=== PATIENT | female | born 1965 | race Hispanic/Latino ===

== ENCOUNTER 2016-10-26 20:31 | Emergency (ER) | payer MEDICARE | END 2016-10-26 21:30 | disposition left against medical advice (07) | LOC: ED 20:31 | DX: R06.00 Dyspnea, unspecified (principal); Z53.21 Procedure and treatment not carried out due to patient leaving prior to being seen by health care provider ==

== ENCOUNTER 2016-10-27 05:37 | Emergency (ER) | payer MEDICARE ==
[2016-10-27 09:49] LABS: Urine Drugs of Abuse Note Disclamer
[2016-10-27 09:59] LABS: Bacteria,Urine 1+ /HPF (Negative); Bilirubin,Urine NEG (Negative); Blood,Urine NEG (Negative); Ketones,Urine TR mg/dL (Negative); Leukocyte Esterase,Urine MOD (Negative); Mucus,Urine 3+ /HPF; Nitrite,Urine NEG (Negative)
[2016-10-27 10:18] LABS: Basophils % (Auto) 1.1 % (0.0-1.8); Eosinophils % (Auto) 0.8 % (0.0-4.3); Hematocrit 45.7 % (30.3-42.9); Hemoglobin 15.3 gm/dl (10.1-14.3); Mean Corpuscular HGB Conc 34 % (30-34); Mean Corpuscular Hemoglobin 32 pg (28-32); Mean Corpuscular Volume 95 fl (79-97); Platelet Count 358 K/mm3 (140-440); Red Blood Count 4.83 M/mm3 (3.65-5.03); Red Cell Distribution Width 13.2 % (13.2-15.2); White Blood Count 12.5 K/mm3 (4.5-11.0)
[2016-10-27] MEDS ORDERED: ATIVAN PO PRN (10:19)
[2016-10-27] MEDS ORDERED: PROAIR IH PRN (10:19)
[2016-10-27] MEDS ORDERED: ATIVAN IV PRN (10:19)
--- NOTE | 2016-10-27 10:25 | Emergency Department Report ---
ED Psych HPI - General Chief Complaint: Psych Stated Complaint: MH EVALUATION Time Seen by Provider: 10/27/16 10:01 Source: patient Mode of arrival: Ambulatory Limitations: No Limitations - History of Present Illness Initial Comments: 51-year-old female presents to the emergency department requesting detox from alcohol. Patient states she has been on a "self-destructive path" for the past several weeks. She states she has been drinking as much vodka and [place] 45 that she can get her hands on. She states for the past 2 days she has not taken any of her regular medications. She states that she has been having suicidal thoughts with a plan to either overdose or cut her wrist. Patient has been no attempt cut herself. At this time, the patient states that she feels like she is beginning to withdraw. She reports mild difficulty breathing and mild, sharp upper abdominal pain. Patient's last drink was approximately 5 hours ago. There are no other complaints. -: Gradual, week(s) Associated Psychiatric Symptoms: depression, suicidal ideation History of same: Yes Quality: constant Improves With: none Worsens With: none Context: recent alcohol abuse, not taking psychiatric Associated Symptoms: shortness of breath, other (abdominal pain) Treatments Prior to Arrival: none If Self Harm: admits thoughts of, has plan - Related Data Home Medications Medication Instructions Recorded Confirmed Last Taken No Known Home Medications [No 07/30/15 07/30/15 Unknown Reported Home Medications] Allergies Allergy/AdvReac Type Severity Reaction Status Date / Time acetaminophen Allergy Hives Verified 07/29/15 22:42 [From Darvocet-N] carbamazepine [From Tegretol] Allergy Rash Verified 10/27/16 09:17 propoxyphene napsylate Allergy Hives Verified 07/29/15 22:42 [From Darvocet-N] tuberculin,PPD,multi-puncture Allergy Hives Verified 07/29/15 22:42 ED Review of Systems ROS: Stated complaint: MH EVALUATION Other details as noted in HPI Comment: All other systems reviewed and negative Respiratory: shortness of breath Gastrointestinal: abdominal pain Psychiatric: depression, suicidal thoughts, other (substance abuse) ED Past Medical Hx - Past Medical History Previous Medical History?: Yes Hx CVA: Yes Hx Arthritis: Yes Hx Psychiatric Treatment: Yes Hx Asthma: Yes Additional medical history: Lumbar disk issues - Surgical History Past Surgical History?: Yes Additional Surgical History: Back, left shoulder, skin cancer right upper arm. - Family History Family history: no significant - Social History Smoking Status: Current Every Day Smoker Substance Use Type: Alcohol, Marijuana - Medications Home Medications: Home Medications Medication Instructions Recorded Confirmed Last Taken Type No Known Home Medications [No 07/30/15 07/30/15 Unknown History Reported Home Medications] ED Physical Exam - General Limitations: No Limitations General appearance: alert, in no apparent distress - Head Head exam: Present: atraumatic, normocephalic - Eye Eye exam: Present: normal appearance, PERRL, EOMI - ENT ENT exam: Present: normal exam, normal orophraynx, mucous membranes moist - Neck Neck exam: Present: normal inspection, full ROM. Absent: tenderness - Respiratory Respiratory exam: Present: wheezes (diffuse bilateral posterior). Absent: respiratory distress - Cardiovascular Cardiovascular Exam: Present: regular rate, normal rhythm, normal heart sounds - GI/Abdominal GI/Abdominal exam: Present: soft, normal bowel sounds. Absent: distended, tenderness - Extremities Exam Extremities exam: Present: normal inspection, full ROM. Absent: tenderness - Back Exam Back exam: Present: normal inspection, full ROM. Absent: tenderness - Neurological Exam Neurological exam: Present: alert, oriented X3. Absent: motor sensory deficit - Psychiatric Psychiatric exam: Present: depressed, flat affect, suicidal ideation - Skin Skin exam: Present: warm, dry, intact ED Course Vital Signs 10/27/16 10/27/16 10/27/16 09:18 10:21 10:54 Temperature 98.2 F 98 F Pulse Rate 101 H 83 Pulse Rate [ 79 Posterior Bilateral Throughout] Respiratory 20 20 Rate Respiratory 20 Rate [Posterior Bilateral Throughout] Blood Pressure 169/99 Blood Pressure 134/67 [Left] O2 Sat by Pulse 94 96 Oximetry 10/27/16 11:10 Temperature Pulse Rate Pulse Rate [ 80 Posterior Bilateral Throughout] Respiratory Rate Respiratory 18 Rate [Posterior Bilateral Throughout] Blood Pressure Blood Pressure [Left] O2 Sat by Pulse Oximetry - Reevaluation(s) Reevaluation #1: 10/27/16 11:32 Patient has been medically cleared. Patient is currently awaiting mental health evaluation. Reevaluation #2: 10/27/16 16:01 Patient has been evaluated vomiting health and is being transferred to [place] for inpatient treatment. Form 1013 has been signed and placed on patient's chart. ED Medical Decision Making - Lab Data Result diagrams: 10/27/16 09:57 10/27/16 09:57 - Differential Diagnosis alcohol abuse, depression, suicidal thoughts, pancreatitis, COPD Critical care attestation.: If time is entered above; I have spent that time in minutes in the direct care of this critically ill patient, excluding procedure time. ED Disposition Clinical Impression: Alcohol abuse, Suicidal ideation Disposition: DC/TX PSY HOSP/PSY UNIT Is pt being admited?: No Condition: Stable Referrals: PRIMARY CARE, [Primary Care Provider] - 3-5 Days Time of Disposition: 16:01
[2016-10-27 10:29] LABS: Anion Gap 16 mmol/L; Blood Urea Nitrogen 9 mg/dL (7-17); Calcium 9.4 mg/dL (8.4-10.2); Carbon Dioxide 26 mmol/L (22-30); Chloride 99.9 mmol/L (98-107); Glucose 104 mg/dL (65-100); Potassium 4.2 mmol/L (3.6-5.0); Sodium 138 mmol/L (137-145)
[2016-10-27] MEDS ORDERED: PROVENTIL IH PRN (10:38)
[2016-10-27] MEDS: ATIVAN PO PRN ×2 (10:44→13:35)
[2016-10-27 10:57] LABS: Alanine Aminotransferase 20 units/L (7-56); Albumin 4.2 g/dL (3.9-5); Albumin/Globulin Ratio 1.4 %; Alkaline Phosphatase 106 units/L (35-129); Bilirubin,Total 0.4 mg/dL (0.1-1.2); Lipase 52 units/L (13-60); Total Protein 7.1 g/dL (6.3-8.2)
[2016-10-27 10:58] LABS: Bilirubin,Direct < 0.2 mg/dL (0-0.2)
[2016-10-27 11:01] VITALS: BP 134/67
--- NOTE | 2016-10-27 14:51 | Consultation ---
History of Present Illness - Reason for Consult Consult date: 10/27/16 Reason for consult: suicidal ideation/alcohol withdrawal - Chief Complaint Chief complaint: Patient presented to the emergency department with suicidal ideation with planned overdose or cut her wrist in addition to alcohol withdrawal. - History of Present Psychiatric Illness Kita Schilling is a 51 year old white female seen for psychiatric consultation while in the emergency department. Attempts to interview the patient were unsuccessful. She received Ativan per the CIWA protocol shortly prior. She was sedated. Information was obtained from the record and the staff. It was reported that she was drinking as much vodka and [place] 45 that she can get her hands on recently. She presented to the hospital stating that she wanted to kill herself by overdose or by cutting her wrists. She was placed on 1013 and started on CIWA protocol for alcohol withdrawal. Medications and Allergies Allergies Allergy/AdvReac Type Severity Reaction Status Date / Time acetaminophen Allergy Hives Verified 07/29/15 22:42 [From Darvocet-N] carbamazepine [From Tegretol] Allergy Rash Verified 10/27/16 09:17 propoxyphene napsylate Allergy Hives Verified 07/29/15 22:42 [From Darvocet-N] tuberculin,PPD,multi-puncture Allergy Hives Verified 07/29/15 22:42 Home Medications Medication Instructions Recorded Confirmed Last Taken Type No Known Home Medications [No 07/30/15 07/30/15 Unknown History Reported Home Medications] Active Meds: Active Medications Albuterol (Proventil) 2.5 mg IH Q4HRT PRN PRN Reason: Shortness Of Breath Last Admin: 10/27/16 10:53 Dose: 2.5 mg Lorazepam (Ativan) 2 mg PO Q1HR PRN PRN Reason: CIWA-Ar 8-15 Last Admin: 10/27/16 13:35 Dose: 2 mg Lorazepam (Ativan) 4 mg PO Q1HR PRN PRN Reason: CIWA-Ar 16-25 Lorazepam (Ativan) 4 mg IV Q15MIN PRN PRN Reason: CIWA-Ar >25 Past psychiatric history - Past Medical History Past Medical History: other (unknown) Past Surgical History: Other (unknown) - past Psychiatric treatment and history psychiatric treatment history: unknown - Social History Social history: other (unknown) Mental Status Exam - Vital signs Last Vital Signs Temp 98 F 10/27/16 10:21 Pulse 80 10/27/16 11:10 Resp 18 10/27/16 11:10 BP 134/67 10/27/16 10:21 Pulse Ox 96 10/27/16 10:21 - Exam Narrative exam: Patient was sedated. Unable to obtain any additional information. 2 attempts to interview the patient were made. Results Result Diagrams: 10/27/16 09:57 10/27/16 09:57 Abnormal lab results 10/27/16 10/27/16 10/27/16 Range/Units 09:42 09:57 09:57 WBC 12.5 H (4.5-11.0) K/mm3 Hgb 15.3 H (10.1-14.3) gm/dl Hct 45.7 H (30.3-42.9) % Seg Neutrophils % 77.9 H (40.0-70.0) % Seg Neutrophils # 9.8 H (1.8-7.7) K/mm3 Creatinine 0.4 L (0.7-1.2) mg/dL Glucose 104 H (65-100) mg/dL Urine WBC (Auto) 8.0 H (0.0-6.0) /HPF U Epithel Cells (Auto) 21.0 H (0-13.0) /HPF All other labs normal. Assessment and Plan Assessment and plan: Will continue to attempt interview with the patient to determine further recommendation Plan: Continue [facility] protocol Transfer to inpatient psychiatric facility once medically cleared
== END 2016-10-27 19:19 ==
LOC: ED 05:37
DX: R45.851 Suicidal ideations (principal); F10.129 Alcohol abuse with intoxication, unspecified; J45.909 Unspecified asthma, uncomplicated; Z86.73 Personal history of transient ischemic attack (TIA), and cerebral infarction without residual deficits; Z87.39 Personal history of other diseases of the musculoskeletal system and connective tissue
CPT/HCPCS: 36415; 80048; 80074; 80307; 81001; 81025; 83690; 85025; 94640; 99285; G0480; 80320

== ENCOUNTER 2016-12-27 01:17 | Emergency (ER) | payer MEDICARE ==
[2016-12-27 02:13] LABS: Basophils % (Auto) 0.9 % (0.0-1.8); Eosinophils % (Auto) 2.4 % (0.0-4.3); Hematocrit 41.4 % (30.3-42.9); Hemoglobin 13.7 gm/dl (10.1-14.3); Mean Corpuscular HGB Conc 33 % (30-34); Mean Corpuscular Hemoglobin 31 pg (28-32); Mean Corpuscular Volume 95 fl (79-97); Platelet Count 328 K/mm3 (140-440); Red Blood Count 4.36 M/mm3 (3.65-5.03); Red Cell Distribution Width 13.7 % (13.2-15.2); White Blood Count 9.3 K/mm3 (4.5-11.0)
[2016-12-27 02:26] LABS: Anion Gap 18 mmol/L; Blood Urea Nitrogen 6 mg/dL (7-17); Carbon Dioxide 28 mmol/L (22-30); Chloride 95.9 mmol/L (98-107); Glucose 95 mg/dL (65-100); Potassium 3.8 mmol/L (3.6-5.0); Sodium 138 mmol/L (137-145)
[2016-12-27 03:58] LABS: Urine Drugs of Abuse Note Disclamer
[2016-12-27 04:44] LABS: Bacteria,Urine 1+ /HPF (Negative); Bilirubin,Urine NEG (Negative); Blood,Urine NEG (Negative); Ketones,Urine NEG (Negative); Leukocyte Esterase,Urine NEG (Negative); Nitrite,Urine NEG (Negative); Protein,Urine <15 mg/dL mg/dL (Negative); RBC,Urine < 1.0 /HPF (0.0-6.0); Urobilinogen,Urine < 2.0 mg/dL (<2.0)
[2016-12-27 06:03] VITALS: BP 121/69
== END 2016-12-27 01:47 | disposition left against medical advice (07) ==
LOC: ED 01:17 → EEVIPCON 01:17 → ED 01:47
DX: Z00.00 Encounter for general adult medical examination without abnormal findings (principal); Z53.21 Procedure and treatment not carried out due to patient leaving prior to being seen by health care provider
CPT/HCPCS: 36415; 80048; 80307; 81001; 81025; 85025; G0480; 80320

== ENCOUNTER 2016-12-29 11:54 | Emergency (ER) | payer MEDICARE | END 2016-12-29 11:57 | disposition left against medical advice (07) | LOC: ED 11:54 | DX: Z53.21 Procedure and treatment not carried out due to patient leaving prior to being seen by health care provider (principal) ==

== ENCOUNTER 2016-12-30 10:36 | Emergency (ER) | payer MEDICARE ==
[2016-12-30 11:11] LABS: Basophils % (Auto) 2.7 % (0.0-1.8); Eosinophils % (Auto) 0.5 % (0.0-4.3); Hemoglobin 14.4 gm/dl (10.1-14.3); Mean Corpuscular HGB Conc 33 % (30-34); Mean Corpuscular Hemoglobin 32 pg (28-32); Mean Corpuscular Volume 95 fl (79-97); Platelet Count 423 K/mm3 (140-440); Red Blood Count 4.55 M/mm3 (3.65-5.03); Red Cell Distribution Width 14.1 % (13.2-15.2); White Blood Count 7.1 K/mm3 (4.5-11.0)
[2016-12-30 11:12] LABS: Blood Urea Nitrogen 8 mg/dL (7-17); Calcium 9.2 mg/dL (8.4-10.2); Carbon Dioxide 25 mmol/L (22-30); Glucose 91 mg/dL (65-100)
[2016-12-30 11:12] LABS: Urine Drugs of Abuse Note Disclamer
[2016-12-30 11:13] LABS: Anion Gap 23 mmol/L; Chloride 96.6 mmol/L (98-107); Potassium 3.9 mmol/L (3.6-5.0); Sodium 141 mmol/L (137-145)
[2016-12-30] MEDS ORDERED: ROBITUSSIN PO ONE (11:34)
[2016-12-30] MEDS ORDERED: TESSALON PERLES PO ONE (11:34)
[2016-12-30] MEDS ORDERED: TORADOL IM ONE (11:35)
[2016-12-30] MEDS ORDERED: NACL 0.9% 1000 ML 1,000 ML IV ONE (11:53)
[2016-12-30] MEDS ORDERED: VALIUM IV ONE (11:53)
[2016-12-30] MEDS ORDERED: DUONEB 0.5 MG-3 MG/3 ML SOLN IH ONE (11:53)
[2016-12-30 12:05] LABS: Bacteria,Urine 1+ /HPF (Negative); Mucus,Urine FEW /HPF
--- NOTE | 2016-12-30 12:07 | XRay Report ---
Single view chest: History: Chest pain. Findings: Normal cardiomediastinal silhouette. Trachea is midline. No consolidation, pneumothorax or pleural effusion. Impression: No acute cardiopulmonary findings.
[2016-12-30 12:15] LABS: Bilirubin,Urine NEG (Negative); Blood,Urine NEG (Negative); Ketones,Urine 20 mg/dL (Negative); Leukocyte Esterase,Urine NEG (Negative); Nitrite,Urine NEG (Negative); Urobilinogen,Urine < 2.0 mg/dL (<2.0)
--- NOTE | 2016-12-30 14:18 | Emergency Department Report ---
HPI - General Chief Complaint: Medical Clearance Time Seen by Provider: 12/30/16 11:30 - HPI HPI: The patient is a 51-year-old female presents for evaluation of dyspnea. The patient reports constant severe dyspnea for the past one day, exacerbated with exertion, improved with rest. She also reports associated no productive cough for the past 2 weeks, worsening for the past one day. The patient has fever, chest pain, syncope, hemoptysis, unilateral leg swelling, oral contraceptive use , recent immobilization, history of DVT or PE, recent cancer. ED Past Medical Hx - Past Medical History Previous Medical History?: Yes Hx CVA: Yes Hx Arthritis: Yes Hx Psychiatric Treatment: Yes (ETOH abuse, Drug abuse, Cocaine and crack) Hx Asthma: Yes Additional medical history: Lumbar disk issues - Surgical History Past Surgical History?: Yes Additional Surgical History: Back, left shoulder, skin cancer right upper arm. - Social History Smoking Status: Current Every Day Smoker Substance Use Type: Alcohol, Cocaine, Marijuana, Prescribed, Other - Medications Home Medications: Home Medications Medication Instructions Recorded Confirmed Last Taken Type ALBUTEROL Inhaler [ProAir HFA 2 puff IH QID PRN #1 inhalation 12/30/16 Unknown Rx Inhaler] Benzonatate [Tessalon Perles] 100 mg PO Q8HR #14 capsule 12/30/16 Unknown Rx Buprenorphine HCl/Naloxone HCl 1 each SL TID 12/30/16 12/30/16 Unknown History [Suboxone 4 mg-1 mg Sl Film] Duloxetine HCl [Cymbalta] 60 mg PO DAILY 12/30/16 12/30/16 Unknown History Gabapentin [Neurontin] 800 mg PO QID 12/30/16 12/30/16 Unknown History Lisinopril 40 mg PO DAILY 12/30/16 12/30/16 Unknown History Oxycodone HCl/Acetaminophen 1 each PO TID 12/30/16 12/30/16 Unknown History [Percocet 10/325 mg] Prazosin [Minipress] 1 mg PO DAILY 12/30/16 12/30/16 Unknown History lamoTRIgine [LaMICtal] 100 mg PO QDAY 12/30/16 12/30/16 Unknown History predniSONE [Deltasone] 20 mg PO QDAY #5 tab 12/30/16 Unknown Rx traZODone [Desyrel] 200 mg PO QHS 12/30/16 12/30/16 Unknown History ED Review of Systems ROS: Stated complaint: COUGH,CONGESTION/FEVER/BACK PAIN Other details as noted in HPI Constitutional: denies: fever ENT: denies: throat or neck pain Respiratory: reports cough, shortness of breath Cardiovascular: denies: chest pain Endocrine: denies unexplained weight loss or gain Gastrointestinal: denies: abdominal pain, nausea Genitourinary: denies: dysuria Musculoskeletal: denies: leg swelling Skin: denies: rash Neurological: denies: headache Hematological/Lymphatic: denies: easy bleeding or easy bruising Psych: denies sadness or hopelessness Physical Exam - Physical Exam Vital Signs: Vital Signs 12/30/16 12/30/16 12/30/16 10:40 11:14 11:20 Temperature 98.1 F Pulse Rate 86 Pulse Rate [ Posterior Throughout] Respiratory 22 Rate Respiratory Rate [Posterior Throughout] Blood Pressure 159/105 163/81 Blood Pressure [Right] O2 Sat by Pulse 97 98 97 Oximetry 12/30/16 12/30/16 12/30/16 11:30 11:33 11:34 Temperature Pulse Rate 76 Pulse Rate [ Posterior Throughout] Respiratory 18 18 Rate Respiratory Rate [Posterior Throughout] Blood Pressure 158/76 Blood Pressure 163/81 [Right] O2 Sat by Pulse 92 96 96 Oximetry 12/30/16 12/30/16 12/30/16 11:40 12:27 12:38 Temperature Pulse Rate Pulse Rate [ 80 84 Posterior Throughout] Respiratory Rate Respiratory 18 18 Rate [Posterior Throughout] Blood Pressure 158/76 Blood Pressure [Right] O2 Sat by Pulse 98 Oximetry 12/30/16 12/30/16 12/30/16 12:40 12:50 13:00 Temperature Pulse Rate Pulse Rate [ Posterior Throughout] Respiratory Rate Respiratory Rate [Posterior Throughout] Blood Pressure 158/76 158/76 Blood Pressure [Right] O2 Sat by Pulse 93 94 93 Oximetry Physical Exam: General: well-nourished, well-developed, no acute distress Head: Normocephalic, atraumatic Eyes: normal sclera ENT: Mucous membranes are pink and moist Neck: trachea midline, neck supple, No neck stiffness, no cervical adenopathy Respiratory: Diminished breath sounds and wheezing present to mid apical lung zepeda bilaterally, no costal retractions, no rales or distress, no rales or rhonchi Cardio: S1 and S2 present, no murmurs, rubs, gallops, capillary refill is brisk Abdomen: Normoactive bowel sounds, soft abdomen, no rigidity, no guarding or rebound tenderness Musc: No pitting edema Skin: No rash Neuro: no facial drooping, normal speech Psych: Normal affect ED Course Vital Signs 12/30/16 12/30/16 12/30/16 10:40 11:14 11:20 Temperature 98.1 F Pulse Rate 86 Pulse Rate [ Posterior Throughout] Respiratory 22 Rate Respiratory Rate [Posterior Throughout] Blood Pressure 159/105 163/81 Blood Pressure [Right] O2 Sat by Pulse 97 98 97 Oximetry 12/30/16 12/30/16 12/30/16 11:30 11:33 11:34 Temperature Pulse Rate 76 Pulse Rate [ Posterior Throughout] Respiratory 18 18 Rate Respiratory Rate [Posterior Throughout] Blood Pressure 158/76 Blood Pressure 163/81 [Right] O2 Sat by Pulse 92 96 96 Oximetry 12/30/16 12/30/16 12/30/16 11:40 12:27 12:38 Temperature Pulse Rate Pulse Rate [ 80 84 Posterior Throughout] Respiratory Rate Respiratory 18 18 Rate [Posterior Throughout] Blood Pressure 158/76 Blood Pressure [Right] O2 Sat by Pulse 98 Oximetry 12/30/16 12/30/16 12/30/16 12:40 12:50 13:00 Temperature Pulse Rate Pulse Rate [ Posterior Throughout] Respiratory Rate Respiratory Rate [Posterior Throughout] Blood Pressure 158/76 158/76 Blood Pressure [Right] O2 Sat by Pulse 93 94 93 Oximetry ED Medical Decision Making - Lab Data Result diagrams: 12/30/16 10:47 12/30/16 10:47 - Medical Decision Making The patient was seen and examined by myself. The patient is placed on a equipment monitor phototypesetting and continuous pulse ox. On initial evaluation, the patient was found to be in no distress. Evaluation orders were placed. The patient is given Tessalon Perles for cough, a duoneb breathing treatment and IV Solu- Medrol for txt of COPD. the patient is given 1 L normal saline fluid bolus for treatment of dehydration. Chest x-ray negative for focal consolidation, pleural effusions, pulmonary congestion, pneumothorax, or other acute cardio pulmonary disease process. Lab results revealed elevated hemoglobin and hematocrit, consistent with exam findings of dehydration, and otherwise labs are grossly not concerning. The patient was reevaluated and reported that their symptoms were improved. The patient is stable for discharge with outpatient follow-up. The patient is given follow-up and return instructions. The patient expressed understanding and agreed with the plan. The patient is given a prescription for prednisone. The patient is discharged in stable condition. Critical care attestation.: If time is entered above; I have spent that time in minutes in the direct care of this critically ill patient, excluding procedure time. ED Disposition Clinical Impression: COPD with acute exacerbation, Dehydration, Upper respiratory infection, acute Alcohol intoxication Qualifiers: Complication of substance-induced condition: uncomplicated Qualified Code(s): F10.920 - Alcohol use, unspecified with intoxication, uncomplicated Disposition: DISCHARGED TO HOME OR SELFCARE Is pt being admited?: No Does the pt Need Aspirin: No Condition: Stable Instructions: Chronic Obstructive Pulmonary Disease (ED), Alcohol Intoxication (ED), Medical Clearance for Substance Abuse Treatment (ED) Prescriptions: ALBUTEROL Inhaler [ProAir HFA Inhaler] 2 puff IH QID PRN #1 inhalation PRN Reason: Shortness Of Breath Benzonatate [Tessalon Perles] 100 mg PO Q8HR #14 capsule predniSONE [Deltasone] 20 mg PO QDAY #5 tab Referrals: PRIMARY CARE, [Primary Care Provider] - 3-5 Days Time of Disposition: 14:16
[2016-12-30 16:19] VITALS: BP 145/78
== END 2016-12-30 16:17 | disposition home or self-care (01) ==
LOC: ED 10:36
DX: J44.1 Chronic obstructive pulmonary disease with (acute) exacerbation (principal); E86.0 Dehydration; J06.9 Acute upper respiratory infection, unspecified; F10.920 Alcohol use, unspecified with intoxication, uncomplicated; M19.90 Unspecified osteoarthritis, unspecified site; F17.200 Nicotine dependence, unspecified, uncomplicated; F12.10 Cannabis abuse, uncomplicated; F14.10 Cocaine abuse, uncomplicated; Z86.73 Personal history of transient ischemic attack (TIA), and cerebral infarction without residual deficits
CPT/HCPCS: 36415; 71010; 80048; 80307; 81001; 83880; 85025; 93005; 93010; 94640; 96361; 96372; 96374; 96375; 99285; G0480; J1885; J2930; J3360; J7030; 80320

== ENCOUNTER 2017-10-09 11:07 | Outpatient (CLI) | payer MEDICARE ==
--- NOTE | 2017-10-09 11:34 | XRay Report ---
X-RAY RIGHT WRIST THREE VIEWS: 10/09/17 CLINICAL: Right wrist pain. No comparison. FINDINGS: The examination is taken through a fiberglass cast. Comminuted mildly displaced fracture of the distal radius with no distinct callus identified. The predominant fracture line is horizontal with some impaction but there is a longitudinal fracture line which extends into the radiocarpal joint. The medial corner fragment of the distal radius is slightly displaced medially. The distal ulna is normal. Carpal bones are intact. IMPRESSION: Traumatic subacute fracture of the distal radius with mild displacement of fragments. Bony detail is obscured by the overlying cast.
== END 2017-10-09 11:08 | disposition home or self-care (01) ==
LOC: SPVIMAG 11:07
PROVIDERS: ATTEND Orthopaedic Surgery
DX: S52.501A Unspecified fracture of the lower end of right radius, initial encounter for closed fracture (principal); X58.XXXA Exposure to other specified factors, initial encounter; Y93.89 Activity, other specified; Y92.89 Other specified places as the place of occurrence of the external cause; Y99.8 Other external cause status

== ENCOUNTER 2017-10-30 00:39 | Emergency (ER) | payer MEDICARE ==
[2017-10-30 01:48] LABS: Alanine Aminotransferase 10 units/L (7-56); Albumin 4.7 g/dL (3.9-5); BUN/Creatinine Ratio 30; Blood Urea Nitrogen 12 mg/dL (7-17); Calcium 8.9 mg/dL (8.4-10.2); Hemolysis Index 53
[2017-10-30 01:56] LABS: Hematocrit TNR % (30.3-42.9); Hemoglobin TNR gm/dl (10.1-14.3); Mean Corpuscular Volume TNR fl (79-97); Red Blood Count TNR M/mm3 (3.65-5.03)
[2017-10-30 01:57] LABS: Lymphocytes % (Auto) TNR % (13.4-35.0); Mean Corpuscular HGB Conc TNR % (30-34); Mean Corpuscular Hemoglobin TNR pg (28-32); Mean Platelet Volume TNR fl (6-12); Monocytes % (Auto) TNR % (0.0-7.3); Platelet Count TNR K/mm3 (140-440); Red Cell Distribution Width TNR % (13.2-15.2)
[2017-10-30 01:58] LABS: Basophils # (Auto) TNR K/mm3 (0.0-0.1); Basophils % (Auto) TNR % (0.0-1.8); Eosinophils # (Auto) TNR K/mm3 (0.0-0.4); Eosinophils % (Auto) TNR % (0.0-4.3); Lymphocytes # (Auto) TNR K/mm3 (1.2-5.4); Monocytes # (Auto) TNR K/mm3 (0.0-0.8)
[2017-10-30 03:02] LABS: Basophils # (Auto) 0.1 K/mm3 (0.0-0.1); Basophils % (Auto) 1.3 % (0.0-1.8); Eosinophils # (Auto) 0.1 K/mm3 (0.0-0.4); Eosinophils % (Auto) 0.9 % (0.0-4.3); Hematocrit 45.6 % (30.3-42.9); Hemoglobin 15.6 gm/dl (10.1-14.3); Lymphocytes # (Auto) 1.8 K/mm3 (1.2-5.4); Lymphocytes % (Auto) 25.5 % (13.4-35.0); Mean Corpuscular HGB Conc 34 % (30-34); Mean Corpuscular Hemoglobin 32 pg (28-32); Mean Corpuscular Volume 94 fl (79-97); Monocytes # (Auto) 0.3 K/mm3 (0.0-0.8); Monocytes % (Auto) 3.8 % (0.0-7.3); Platelet Count 215 K/mm3 (140-440); Red Blood Count 4.85 M/mm3 (3.65-5.03); Red Cell Distribution Width 14.7 % (13.2-15.2)
[2017-10-30 03:07] LABS: Bilirubin,Urine NEG (Negative); Blood,Urine NEG (Negative); Color,Urine Yellow (Yellow); Hyaline Casts,Urine 1 /LPF; Mucus,Urine FEW /HPF; Protein,Urine <15 mg/dL mg/dL (Negative); Urobilinogen,Urine < 2.0 mg/dL (<2.0); WBC,Urine < 1.0 /HPF (0.0-6.0)
[2017-10-30 03:15] LABS: Amphetamine Screen,Urine PRESUMPTIVE NEGATIVE; Benzodiazepines Screen,Urine PRESUMPTIVE NEGATIVE; Cocaine Screen,Urine PRESUMPTIVE NEGATIVE; Methadone Screen,Urine PRESUMPTIVE NEGATIVE; Opiate Screen,Urine PRESUMPTIVE NEGATIVE
[2017-10-30 03:27] LABS: Cannabinoid Screen,Urine PRESUMPTIVE POSITIVE
--- NOTE | 2017-10-30 04:38 | Cat Scan Report ---
FINAL REPORT EXAM: CT HEAD/BRAIN WO CON HISTORY: AMS TECHNIQUE: Routine axial imaging was obtained of the brain without IV contrast. FINDINGS: There is no evidence of acute stroke or hemorrhage. The ventricular system is appropriate in size and is symmetric. The basal cisterns appear normal. The visualized sinuses are clear. The mastoid air cells are well pneumatized. The calvarium appears intact IMPRESSION: No acute intracranial process.
[2017-10-30] MEDS: VITAMIN B-1 100 MG, FOLVITE 1 MG, INFUVITE 10 ML in NACL 0.9% 1000 ML 1,000 ML IV ONE (05:18)
--- NOTE | 2017-10-30 06:26 | Emergency Department Report ---
ED General Adult HPI - General Chief complaint: Alcohol Stated complaint: POSS ETOH,BACK/ABD PAIN Time Seen by Provider: 10/30/17 06:24 Source: patient, EMS Mode of arrival: Wheelchair Limitations: No Limitations - History of Present Illness Initial comments: This is a 52-year-old female that arrived here last night essentially intoxicated with alcohol. She has chronic back pain which she is not complaining. On my encounter at [facility] resting comfortably. She did note that she has COPD and when I asked requested a neb treatment. Aside from that she had no acute complaint. -: Gradual Location: back (chronic back pain) Radiation: non-radiation Quality: aching Consistency: intermittent Improves with: none Worsens with: none Associated Symptoms: denies other symptoms - Related Data Home Medications Medication Instructions Recorded Confirmed Last Taken Buprenorphine HCl/Naloxone HCl 1 each SL TID 12/30/16 12/30/16 Unknown [Suboxone 4 mg-1 mg Sl Film] Duloxetine HCl [Cymbalta] 60 mg PO DAILY 12/30/16 12/30/16 Unknown Gabapentin [Neurontin] 800 mg PO QID 12/30/16 12/30/16 Unknown Lisinopril 40 mg PO DAILY 12/30/16 12/30/16 Unknown Oxycodone HCl/Acetaminophen 1 each PO TID 12/30/16 12/30/16 Unknown [Percocet 10/325 mg] Prazosin [Minipress] 1 mg PO DAILY 12/30/16 12/30/16 Unknown lamoTRIgine [LaMICtal] 100 mg PO QDAY 12/30/16 12/30/16 Unknown traZODone [Desyrel] 200 mg PO QHS 12/30/16 12/30/16 Unknown Previous Rx's Medication Instructions Recorded Last Taken Type ALBUTEROL Inhaler [ProAir HFA 2 puff IH QID PRN #1 inhalation 12/30/16 Unknown Rx Inhaler] Benzonatate [Tessalon Perles] 100 mg PO Q8HR #14 capsule 12/30/16 Unknown Rx predniSONE [Deltasone] 20 mg PO QDAY #5 tab 12/30/16 Unknown Rx Allergies Allergy/AdvReac Type Severity Reaction Status Date / Time acetaminophen Allergy Hives Verified 07/29/15 22:42 [From Darvocet-N] carbamazepine [From Tegretol] Allergy Rash Verified 10/27/16 09:17 propoxyphene napsylate Allergy Hives Verified 07/29/15 22:42 [From Makayla-N] tuberculin,PPD,multi-puncture Allergy Hives Verified 07/29/15 22:42 ED Review of Systems ROS: Stated complaint: POSS ETOH,BACK/ABD PAIN Other details as noted in HPI Constitutional: denies: chills, fever Eyes: denies: eye pain, eye discharge, vision change ENT: denies: ear pain, throat pain Respiratory: denies: cough, shortness of breath, wheezing Cardiovascular: denies: chest pain, palpitations Endocrine: no symptoms reported Gastrointestinal: denies: abdominal pain, nausea, diarrhea Genitourinary: denies: urgency, dysuria, discharge Musculoskeletal: as per HPI, back pain. denies: joint swelling, arthralgia Skin: denies: rash, lesions Neurological: denies: headache, weakness, paresthesias Psychiatric: denies: anxiety, depression Hematological/Lymphatic: denies: easy bleeding, easy bruising ED Past Medical Hx - Past Medical History Previous Medical History?: Yes Hx CVA: Yes Hx Arthritis: Yes Hx Psychiatric Treatment: Yes (ETOH abuse, Drug abuse, Cocaine and crack) Hx Asthma: Yes Additional medical history: Lumbar disk issues - Surgical History Past Surgical History?: Yes Additional Surgical History: Back, left shoulder, skin cancer right upper arm. - Social History Smoking Status: Current Every Day Smoker Substance Use Type: Alcohol - Medications Home Medications: Home Medications Medication Instructions Recorded Confirmed Last Taken Type ALBUTEROL Inhaler [ProAir HFA 2 puff IH QID PRN #1 inhalation 12/30/16 Unknown Rx Inhaler] Benzonatate [Tessalon Perles] 100 mg PO Q8HR #14 capsule 12/30/16 Unknown Rx Buprenorphine HCl/Naloxone HCl 1 each SL TID 12/30/16 12/30/16 Unknown History [Suboxone 4 mg-1 mg Sl Film] Duloxetine HCl [Cymbalta] 60 mg PO DAILY 12/30/16 12/30/16 Unknown History Gabapentin [Neurontin] 800 mg PO QID 12/30/16 12/30/16 Unknown History Lisinopril 40 mg PO DAILY 12/30/16 12/30/16 Unknown History Oxycodone HCl/Acetaminophen 1 each PO TID 12/30/16 12/30/16 Unknown History [Percocet 10/325 mg] Prazosin [Minipress] 1 mg PO DAILY 12/30/16 12/30/16 Unknown History lamoTRIgine [LaMICtal] 100 mg PO QDAY 12/30/16 12/30/16 Unknown History predniSONE [Deltasone] 20 mg PO QDAY #5 tab 12/30/16 Unknown Rx traZODone [Desyrel] 200 mg PO QHS 12/30/16 12/30/16 Unknown History ED Physical Exam - General Limitations: No Limitations General appearance: alert, in no apparent distress - Head Head exam: Present: atraumatic, normocephalic - Eye Eye exam: Present: normal appearance. Absent: scleral icterus - ENT ENT exam: Present: mucous membranes moist - Neck Neck exam: Present: normal inspection. Absent: tenderness, meningismus - Respiratory Respiratory exam: Present: normal lung sounds bilaterally. Absent: respiratory distress - Cardiovascular Cardiovascular Exam: Present: regular rate, normal rhythm. Absent: systolic murmur, diastolic murmur, rubs, gallop - GI/Abdominal GI/Abdominal exam: Present: soft, normal bowel sounds. Absent: distended, tenderness, guarding, rebound, rigid - Extremities Exam Extremities exam: Present: normal inspection, full ROM, normal capillary refill. Absent: tenderness, pedal edema, joint swelling, calf tenderness - Back Exam Back exam: Present: normal inspection. Absent: CVA tenderness (R), CVA tenderness (L), muscle spasm, paraspinal tenderness, vertebral tenderness - Neurological Exam Neurological exam: Present: alert, oriented X3, CN II-XII intact. Absent: motor sensory deficit - Psychiatric Psychiatric exam: Present: normal affect, normal mood - Skin Skin exam: Present: warm, dry, intact, normal color. Absent: rash ED Course Vital Signs 10/30/17 10/30/17 10/30/17 00:55 01:00 01:01 Temperature 97.7 F Pulse Rate 77 Pulse Rate [ Anterior] Respiratory 22 Rate Respiratory Rate [Anterior] Blood Pressure 160/72 161/83 Blood Pressure 161/83 [Left] O2 Sat by Pulse 96 92 98 Oximetry 10/30/17 10/30/17 10/30/17 03:00 04:00 05:03 Temperature Pulse Rate Pulse Rate [ Anterior] Respiratory Rate Respiratory Rate [Anterior] Blood Pressure 125/61 140/77 140/77 Blood Pressure [Left] O2 Sat by Pulse 91 92 93 Oximetry 10/30/17 10/30/17 10/30/17 06:00 07:45 08:14 Temperature Pulse Rate 95 H Pulse Rate [ 88 Anterior] Respiratory 20 Rate Respiratory 22 Rate [Anterior] Blood Pressure 124/70 Blood Pressure 135/72 [Left] O2 Sat by Pulse 94 100 Oximetry - Reevaluation(s) Reevaluation #1: Patient was fully ambulatory about the emergency department. I found no criteria for admission. She'll be released and encouraged to to follow up with primary care provider. She is now awake alert and oriented 3. 10/30/17 09:22 10/30/17 09:23 ED Medical Decision Making - Lab Data Result diagrams: 10/30/17 02:25 10/30/17 01:12 Laboratory Results - last 24 hr 10/30/17 10/30/17 10/30/17 01:12 01:12 01:12 WBC TNR RBC TNR Hgb TNR Hct TNR MCV TNR MCH TNR MCHC TNR RDW TNR Plt Count TNR Lymph % (Auto) TNR Berks % (Auto) TNR Eos % (Auto) TNR Baso % (Auto) TNR Lymph # TNR [place] # TNR Eos # TNR Baso # TNR Add Manual Diff TNR Seg Neutrophils % TNR Seg Neutrophils # TNR Sodium 138 Potassium 4.4 Chloride 96.5 L Carbon Dioxide 21 L Anion Gap 25 BUN 12 Creatinine 0.4 L Estimated GFR > 60 BUN/Creatinine Ratio 30 Glucose 85 Calcium 8.9 Magnesium 1.90 Total Bilirubin 0.20 AST 22 ALT 10 Alkaline Phosphatase 103 Total Creatine Kinase Total Protein 7.5 Albumin 4.7 Albumin/Globulin Ratio 1.7 Urine Color Urine Turbidity Urine pH Ur Specific Anthony Urine Protein Urine Glucose (UA) Urine Ketones Urine Blood Urine Nitrite Urine Bilirubin Urine Urobilinogen Ur Leukocyte Esterase Urine WBC (Auto) Urine RBC (Auto) Hyaline Casts Urine Mucus Urine Opiates Screen Urine Methadone Screen Ur Barbiturates Screen Ur Phencyclidine Scrn Ur Amphetamines Screen U Benzodiazepines Scrn Urine Cocaine Screen U Marijuana (THC) Screen Drugs of Abuse Note Plasma/Serum Alcohol 0.25 H 03/28/18 03/28/18 03/28/18 01:12 02:11 02:11 WBC RBC Hgb Hct MCV MCH MCHC RDW Plt Count Lymph % (Auto) Berks % (Auto) Eos % (Auto) Baso % (Auto) Lymph # [place] # Eos # Baso # Add Manual Diff Seg Neutrophils % Seg Neutrophils # Sodium Potassium Chloride Carbon Dioxide Anion Gap BUN Creatinine Estimated GFR BUN/Creatinine Ratio Glucose Calcium Magnesium Total Bilirubin AST ALT Alkaline Phosphatase Total Creatine Kinase 56 Total Protein Albumin Albumin/Globulin Ratio Urine Color Yellow Urine Turbidity Clear Urine pH 5.0 Ur Specific Anthony 1.013 Urine Protein <15 mg/dl Urine Glucose (UA) Neg Urine Ketones Neg Urine Blood Neg Urine Nitrite Neg Urine Bilirubin Neg Urine Urobilinogen < 2.0 Ur Leukocyte Esterase Neg Urine WBC (Auto) < 1.0 Urine RBC (Auto) 1.0 Hyaline Casts 1 Urine Mucus Few Urine Opiates Screen Presumptive negative Urine Methadone Screen Presumptive negative Ur Barbiturates Screen Presumptive negative Ur Phencyclidine Scrn Presumptive negative Ur Amphetamines Screen Presumptive negative U Benzodiazepines Scrn Presumptive negative Urine Cocaine Screen Presumptive negative U Marijuana (THC) Screen Presumptive positive Drugs of Abuse Note Disclamer Plasma/Serum Alcohol 10/30/17 02:25 WBC 6.9 RBC 4.85 Hgb 15.6 H Hct 45.6 H MCV 94 MCH 32 MCHC 34 RDW 14.7 Plt Count 215 Lymph % (Auto) 25.5 Berks % (Auto) 3.8 Eos % (Auto) 0.9 Baso % (Auto) 1.3 Lymph # 1.8 Berks # 0.3 Eos # 0.1 Baso # 0.1 Add Manual Diff Seg Neutrophils % 68.5 Seg Neutrophils # 4.7 Sodium Potassium Chloride Carbon Dioxide Anion Gap BUN Creatinine Estimated GFR BUN/Creatinine Ratio Glucose Calcium Magnesium Total Bilirubin AST ALT Alkaline Phosphatase Total Creatine Kinase Total Protein Albumin Albumin/Globulin Ratio Urine Color Urine Turbidity Urine pH Ur Specific Anthony Urine Protein Urine Glucose (UA) Urine Ketones Urine Blood Urine Nitrite Urine Bilirubin Urine Urobilinogen Ur Leukocyte Esterase Urine WBC (Auto) Urine RBC (Auto) Hyaline Casts Urine Mucus Urine Opiates Screen Urine Methadone Screen Ur Barbiturates Screen Ur Phencyclidine Scrn Ur Amphetamines Screen U Benzodiazepines Scrn Urine Cocaine Screen U Marijuana (THC) Screen Drugs of Abuse Note Plasma/Serum Alcohol Laboratory Results - last 24 hr 10/30/17 10/30/17 10/30/17 01:12 01:12 01:12 WBC TNR RBC TNR Hgb TNR Hct TNR MCV TNR MCH TNR MCHC TNR RDW TNR Plt Count TNR Lymph % (Auto) TNR Berks % (Auto) TNR Eos % (Auto) TNR Baso % (Auto) TNR Lymph # TNR [place]ks # TNR Eos # TNR Baso # TNR Add Manual Diff TNR Seg Neutrophils % TNR Seg Neutrophils # TNR Sodium 138 Potassium 4.4 Chloride 96.5 L Carbon Dioxide 21 L Anion Gap 25 BUN 12 Creatinine 0.4 L Estimated GFR > 60 BUN/Creatinine Ratio 30 Glucose 85 Calcium 8.9 Magnesium 1.90 Total Bilirubin 0.20 AST 22 ALT 10 Alkaline Phosphatase 103 Total Creatine Kinase Total Protein 7.5 Albumin 4.7 Albumin/Globulin Ratio 1.7 Urine Color Urine Turbidity Urine pH Ur Specific Anthony Urine Protein Urine Glucose (UA) Urine Ketones Urine Blood Urine Nitrite Urine Bilirubin Urine Urobilinogen Ur Leukocyte Esterase Urine WBC (Auto) Urine RBC (Auto) Hyaline Casts Urine Mucus Urine Opiates Screen Urine Methadone Screen Ur Barbiturates Screen Ur Phencyclidine Scrn Ur Amphetamines Screen U Benzodiazepines Scrn Urine Cocaine Screen U Marijuana (THC) Screen Drugs of Abuse Note Plasma/Serum Alcohol 0.25 H 10/30/17 10/30/17 10/30/17 01:12 02:11 02:11 WBC RBC Hgb Hct MCV MCH MCHC RDW Plt Count Lymph % (Auto) [place]ks % (Auto) Eos % (Auto) Baso % (Auto) Lymph # [place] # Eos # Baso # Add Manual Diff Seg Neutrophils % Seg Neutrophils # Sodium Potassium Chloride Carbon Dioxide Anion Gap BUN Creatinine Estimated GFR BUN/Creatinine Ratio Glucose Calcium Magnesium Total Bilirubin AST ALT Alkaline Phosphatase Total Creatine Kinase 56 Total Protein Albumin Albumin/Globulin Ratio Urine Color Yellow Urine Turbidity Clear Urine pH 5.0 Ur Specific Anthony 1.013 Urine Protein <15 mg/dl Urine Glucose (UA) Neg Urine Ketones Neg Urine Blood Neg Urine Nitrite Neg Urine Bilirubin Neg Urine Urobilinogen < 2.0 Ur Leukocyte Esterase Neg Urine WBC (Auto) < 1.0 Urine RBC (Auto) 1.0 Hyaline Casts 1 Urine Mucus Few Urine Opiates Screen Presumptive negative Urine Methadone Screen Presumptive negative Ur Barbiturates Screen Presumptive negative Ur Phencyclidine Scrn Presumptive negative Ur Amphetamines Screen Presumptive negative U Benzodiazepines Scrn Presumptive negative Urine Cocaine Screen Presumptive negative U Marijuana (THC) Screen Presumptive positive Drugs of Abuse Note Disclamer Plasma/Serum Alcohol 10/30/17 02:25 WBC 6.9 RBC 4.85 Hgb 15.6 H Hct 45.6 H MCV 94 MCH 32 MCHC 34 RDW 14.7 Plt Count 215 Lymph % (Auto) 25.5 Berks % (Auto) 3.8 Eos % (Auto) 0.9 Baso % (Auto) 1.3 Lymph # 1.8 Berks # 0.3 Eos # 0.1 Baso # 0.1 Add Manual Diff Seg Neutrophils % 68.5 Seg Neutrophils # 4.7 Sodium Potassium Chloride Carbon Dioxide Anion Gap BUN Creatinine Estimated GFR BUN/Creatinine Ratio Glucose Calcium Magnesium Total Bilirubin AST ALT Alkaline Phosphatase Total Creatine Kinase Total Protein Albumin Albumin/Globulin Ratio Urine Color Urine Turbidity Urine pH Ur Specific Anthony Urine Protein Urine Glucose (UA) Urine Ketones Urine Blood Urine Nitrite Urine Bilirubin Urine Urobilinogen Ur Leukocyte Esterase Urine WBC (Auto) Urine RBC (Auto) Hyaline Casts Urine Mucus Urine Opiates Screen Urine Methadone Screen Ur Barbiturates Screen Ur Phencyclidine Scrn Ur Amphetamines Screen U Benzodiazepines Scrn Urine Cocaine Screen U Marijuana (THC) Screen Drugs of Abuse Note Plasma/Serum Alcohol - Radiology Data Radiology results: report reviewed (no acute intracranial process) interpreted by me: No acute intracranial process Critical care attestation.: If time is entered above; I have spent that time in minutes in the direct care of this critically ill patient, excluding procedure time. ED Disposition Clinical Impression: Alcohol intoxication Qualifiers: Complication of substance-induced condition: with unspecified complication Qualified Code(s): F10.929 - Alcohol use, unspecified with intoxication, unspecified Chronic lower back pain Qualifiers: Back pain laterality: unspecified Sciatica presence: without sciatica Qualified Code(s): M54.5 - Low back pain; G89.29 - Other chronic pain Disposition: -01 TO HOME OR SELFCARE Is pt being admited?: No Does the pt Need Aspirin: No Condition: Stable Instructions: Abuse of Alcohol (ED), Chronic Back Pain (ED) Additional Instructions: Return any acute change or problem. Obviously control your alcohol use. Follow -up with her primary care provider. If he do not have one one is listed or a primary care clinic. Referrals: GREG WELLS MD [Primary Care Provider] - 3-5 Days [facility] [Provider Group] - 3-5 Days Time of Disposition: 09:25
[2017-10-30] MEDS: DUONEB *Not for PRN Use IH ONE (07:54)
[2017-10-30 08:17] VITALS: BP 135/72
[2017-10-30] MEDS: ZOFRAN ODT PO ONE (08:56)
== END 2017-10-30 09:30 | disposition home or self-care (01) ==
LOC: ED 00:39
DX: M54.5 Low back pain (principal); G89.29 Other chronic pain; F10.129 Alcohol abuse with intoxication, unspecified; J45.909 Unspecified asthma, uncomplicated; I63.9 Cerebral infarction, unspecified; M19.90 Unspecified osteoarthritis, unspecified site; F17.200 Nicotine dependence, unspecified, uncomplicated; F14.10 Cocaine abuse, uncomplicated; Z88.6 Allergy status to analgesic agent; Z88.8 Allergy status to other drugs, medicaments and biological substances
CPT/HCPCS: 36415; 70450; 80053; 80307; 81001; 82550; 83735; 85025; 94640; 96365; 96366; 99284; G0480; J3411; J7030; 80320; Q0162

== ENCOUNTER 2017-10-30 10:34 | Outpatient (CLI) | payer MEDICARE ==
--- NOTE | 2017-10-30 11:05 | XRay Report ---
XRAY LEFT SHOULDER 2 VIEWS: 10/30/17 10:34:00 CLINICAL: Left shoulder pain. FINDINGS: No fracture or dislocation. Glenohumeral joint arthritis with a large inferior osteophyte and irregularity of the glenoid rim. Normal acromioclavicular joint. Normal soft tissues. IMPRESSION: Severe glenohumeral joint osteoarthritis.
--- NOTE | 2017-10-30 11:21 | XRay Report ---
RIGHT WRIST RADIOGRAPHS INDICATION: Right wrist pain. COMPARISON: 10/09/2017. FINDINGS: AP, lateral and oblique right wrist radiographs again demonstrate overlying cast, limiting bony detail, though with mild increased sclerosis at nondisplaced distal radius metaphyseal fracture site. Faint fracture line though still visible. Intact carpal bones. CONCLUSION: Findings, as above. Thank you for the opportunity to participate in this patient's care.
== END 2017-10-30 10:35 | disposition home or self-care (01) ==
LOC: SPVIMAG 10:34
PROVIDERS: ATTEND Orthopaedic Surgery
DX: S52.591D Other fractures of lower end of right radius, subsequent encounter for closed fracture with routine healing (principal); M19.012 Primary osteoarthritis, left shoulder; X58.XXXD Exposure to other specified factors, subsequent encounter

== ENCOUNTER 2017-11-26 21:51 | Emergency (ER) | payer MEDICARE ==
[2017-11-27 01:29] LABS: Basophils # (Auto) 0.1 K/mm3 (0.0-0.1); Basophils % (Auto) 1.4 % (0.0-1.8); Eosinophils # (Auto) 0.2 K/mm3 (0.0-0.4); Eosinophils % (Auto) 2.3 % (0.0-4.3); Hematocrit 44.4 % (30.3-42.9); Hemoglobin 14.9 gm/dl (10.1-14.3); Lymphocytes # (Auto) 4.1 K/mm3 (1.2-5.4); Lymphocytes % (Auto) 47.1 % (13.4-35.0); Mean Corpuscular HGB Conc 34 % (30-34); Mean Corpuscular Hemoglobin 31 pg (28-32); Mean Corpuscular Volume 94 fl (79-97); Monocytes # (Auto) 0.6 K/mm3 (0.0-0.8); Monocytes % (Auto) 6.8 % (0.0-7.3); Platelet Count 372 K/mm3 (140-440); Red Blood Count 4.75 M/mm3 (3.65-5.03); Red Cell Distribution Width 14.5 % (13.2-15.2)
[2017-11-27 02:00] LABS: BUN/Creatinine Ratio 23; Blood Urea Nitrogen 9 mg/dL (7-17); Calcium 9.3 mg/dL (8.4-10.2); Hemolysis Index 6
== END 2017-11-26 22:26 ==
LOC: ED 21:51
DX: S09.93XA Unspecified injury of face, initial encounter (principal); Z53.21 Procedure and treatment not carried out due to patient leaving prior to being seen by health care provider; Z79.899 Other long term (current) drug therapy; X58.XXXA Exposure to other specified factors, initial encounter; Y93.89 Activity, other specified; Y99.8 Other external cause status; Y92.89 Other specified places as the place of occurrence of the external cause
CPT/HCPCS: 36415; 80048; 85025; G0480; 80320

== ENCOUNTER 2017-11-27 00:31 | Emergency (ER) | payer MEDICARE | END 2017-11-27 01:45 | LOC: ED 00:31 | DX: R06.00 Dyspnea, unspecified (principal); Z53.21 Procedure and treatment not carried out due to patient leaving prior to being seen by health care provider ==

== ENCOUNTER 2018-03-08 21:21 | Emergency (ER) | payer MEDICARE ==
[2018-03-08] MEDS ORDERED: DUONEB *Not for PRN Use IH ONE ×2 (21:41→23:23)
[2018-03-08 22:05] LABS: Basophils # (Auto) 0.1 K/mm3 (0.0-0.1); Basophils % (Auto) 1.1 % (0.0-1.8); Eosinophils # (Auto) 0.3 K/mm3 (0.0-0.4); Eosinophils % (Auto) 5.5 % (0.0-4.3); Hematocrit 42.4 % (30.3-42.9); Hemoglobin 14.3 gm/dl (10.1-14.3); Lymphocytes # (Auto) 2.6 K/mm3 (1.2-5.4); Lymphocytes % (Auto) 42.5 % (13.4-35.0); Mean Corpuscular HGB Conc 34 % (30-34); Mean Corpuscular Hemoglobin 32 pg (28-32); Mean Corpuscular Volume 96 fl (79-97); Monocytes # (Auto) 0.5 K/mm3 (0.0-0.8); Monocytes % (Auto) 7.8 % (0.0-7.3); Platelet Count 200 K/mm3 (140-440); Red Blood Count 4.44 M/mm3 (3.65-5.03)
[2018-03-08 22:17] LABS: Alanine Aminotransferase 11 units/L (7-56); BUN/Creatinine Ratio 28; Blood Urea Nitrogen 14 mg/dL (7-17); Calcium 9.1 mg/dL (8.4-10.2); Hemolysis Index 5
[2018-03-08] MEDS ORDERED: DELTASONE PO ONE (23:23)
--- NOTE | 2018-03-08 23:23 | XRay Report ---
FINAL REPORT PROCEDURE: XR CHEST 1V AP TECHNIQUE: Chest radiograph anteroposterior view. CPT 92617 HISTORY: wheezing COMPARISON: No prior studies are available for comparison. FINDINGS: Heart: Normal. Mediastinum/Vessels: Normal. Lungs/Pleural space: Normal. Bony thorax: No acute osseous abnormality. Life support devices: None. IMPRESSION: No acute cardiopulmonary abnormality.
[2018-03-08] MEDS ORDERED: MOTRIN PO ONE ×2 (23:40→23:52)
[2018-03-08] MEDS ORDERED: SUBLIMAZE IV ONE (23:56)
--- NOTE | 2018-03-09 | Emergency Department Report ---
HPI - General Chief Complaint: Neuro Symptoms/Deficit Time Seen by Provider: 03/08/18 23:21 - HPI HPI: The patient is a 52-year-old female with a significant history of COPD, who presents for evaluation of dyspnea. The patient reports moderate in severity dyspnea, constant since noon earlier today, approximately 10 hours prior to my evaluation, is exacerbated with coughing and exertion. She also reports associated tightness of the chest, which she states is typical for her COPD exacerbations. She has a secondary complaint of mild achy headache for the past day and on and off tingling of the fingertips. The patient denies fever, trauma to the head or chest, syncope, hemoptysis, unilateral leg swelling, recent immobilization, history of DVT or PE, hx of recent cancer. ED Past Medical Hx - Past Medical History Hx Hypertension: Yes Hx CVA: Yes Hx Arthritis: Yes Hx Psychiatric Treatment: Yes (ETOH abuse, Drug abuse, Cocaine and crack) Hx Asthma: Yes Hx COPD: Yes Additional medical history: Lumbar disk issues - Surgical History Additional Surgical History: Back, left shoulder, skin cancer right upper arm. - Social History Smoking Status: Current Every Day Smoker Substance Use Type: None - Medications Home Medications: Home Medications Medication Instructions Recorded Confirmed Last Taken Type ALBUTEROL Inhaler [ProAir HFA 2 puff IH QID PRN #1 inhalation 12/30/16 Unknown Rx Inhaler] Benzonatate [Tessalon Perles] 100 mg PO Q8HR #14 capsule 12/30/16 Unknown Rx Buprenorphine HCl/Naloxone HCl 1 each SL TID 12/30/16 12/30/16 Unknown History [Suboxone 4 mg-1 mg Sl Film] Duloxetine HCl [Cymbalta] 60 mg PO DAILY 12/30/16 12/30/16 Unknown History Gabapentin [Neurontin] 800 mg PO QID 12/30/16 12/30/16 Unknown History Lisinopril 40 mg PO DAILY 12/30/16 12/30/16 Unknown History Oxycodone HCl/Acetaminophen 1 each PO TID 12/30/16 12/30/16 Unknown History [Percocet 10/325 mg] Prazosin [Minipress] 1 mg PO DAILY 12/30/16 12/30/16 Unknown History lamoTRIgine [LaMICtal] 100 mg PO QDAY 05/28/17 05/28/17 Unknown History predniSONE [Deltasone] 20 mg PO QDAY #5 tab 12/30/16 Unknown Rx traZODone [Desyrel] 200 mg PO QHS 12/30/16 12/30/16 Unknown History ALBUTEROL Inhaler [ProAir HFA 2 puff IH QID PRN #1 inhalation 03/09/18 Unknown Rx Inhaler] Ibuprofen [Motrin] 600 mg PO Q8H PRN #30 tablet 03/09/18 Unknown Rx predniSONE [Deltasone] 20 mg PO QDAY #5 tab 03/09/18 Unknown Rx ED Review of Systems ROS: Stated complaint: TINGLING IN HANDS Other details as noted in HPI Constitutional: denies: fever ENT: denies: throat or neck pain Respiratory: reports: cough, shortness of breath Cardiovascular: denies: chest pain Endocrine: denies unexplained weight loss or gain Gastrointestinal: denies: abdominal pain, nausea Genitourinary: denies: dysuria Musculoskeletal: denies: leg swelling Skin: denies: rash Neurological: denies: headache Hematological/Lymphatic: denies: easy bleeding or easy bruising Psych: denies sadness or hopelessness Physical Exam - Physical Exam Vital Signs: Vital Signs 03/08/18 03/08/18 21:28 22:53 Temperature 98.7 F 98 F Pulse Rate 74 63 Respiratory 16 22 Rate Blood Pressure 139/85 Blood Pressure 172/89 [Left] O2 Sat by Pulse 97 99 Oximetry Physical Exam: General: well-nourished, well-developed, no acute distress Head: Normocephalic, atraumatic Eyes: normal sclera ENT: Mucous membranes are pink and moist Neck: trachea midline, neck supple, No neck stiffness, no cervical adenopathy Respiratory: Diminished breath sounds and wheezing present throughout lung zepeda bilaterally, no costal retractions, no respiratory distress Cardio: S1 and S2 present, no murmurs, rubs, gallops, capillary refill is brisk Abdomen: Normoactive bowel sounds, soft abdomen, no rigidity, no guarding or rebound tenderness Musc: No pitting edema Skin: No rash Neuro: alert oriented x4, normal cognition, speech normal, PERRL, EOM intact, no facial drooping, no uvula or tongue deviation on protrusion, no deficit with rotation of neck or shoulder shrug, no obvious gross motor deficit in the upper or lower extremities with flexion or extension at the shoulder, elbow, wrist, hip, knee, or ankle bilaterally, no obvious gross sensation deficit to crude touch or 2 pt discrimination, 2+ symmetric reflexes on DTR testing, no coordination deficit with [id number] or [id number] testing, Babinski downgoing, romberg negative, patient able to to ambulate without abnormal gait Psych: Normal affect ED Course Vital Signs 03/08/18 03/08/18 21:28 22:53 Temperature 98.7 F 98 F Pulse Rate 74 63 Respiratory 16 22 Rate Blood Pressure 139/85 Blood Pressure 172/89 [Left] O2 Sat by Pulse 97 99 Oximetry ED Medical Decision Making - Lab Data Result diagrams: 03/08/18 21:45 03/08/18 21:45 - Medical Decision Making The patient was seen and examined by myself. The patient is placed on a conveyor monitor and continuous pulse ox. On initial evaluation, the patient was found to be in no distress. Evaluation orders were placed. The patient is given a breathing treatment and steroids for txt of COPD. Chest x-ray negative for focal consolidation, pleural effusions, pulmonary congestion, pneumothorax, or other acute cardio pulmonary disease process. Lab results are grossly not concerning. CT scan the head is negative for acute intracranial disease process. The patient was reevaluated and reported that their symptoms were markedly improved. On reexamination the patient is found to have normal respiratory rate and O2 sat on pulse oximetry, with no costal retractions or diminishment of breath sounds on auscultation. The patient is stable for discharge with outpatient follow-up. The patient is given follow-up and return instructions. The patient expressed understanding and agreed with the plan. The patient is discharged in stable condition. Critical care attestation.: If time is entered above; I have spent that time in minutes in the direct care of this critically ill patient, excluding procedure time. ED Disposition Clinical Impression: Acute exacerbation of chronic obstructive pulmonary disease (COPD), Acute chest wall pain Acute nonintractable headache Qualifiers: Headache type: tension-type Qualified Code(s): G44.209 - Tension-type headache , unspecified, not intractable Disposition: DC-01 TO HOME OR SELFCARE Is pt being admited?: No Does the pt Need Aspirin: No Condition: Stable Instructions: Chest Pain (ED), Migraine Headache (ED), Chronic Obstructive Pulmonary Disease (ED) Referrals: PRIMARY CARE, [Primary Care Provider] - 3-5 Days Time of Disposition: 00:00
--- NOTE | 2018-03-09 00:05 | Cat Scan Report ---
FINAL REPORT PROCEDURE: CT HEAD/BRAIN WO CON TECHNIQUE: Computerized tomography of the head was performed without contrast material. HISTORY: headache and bilateral arm/hand tingling COMPARISON: 10/30/2017 FINDINGS: Skull and scalp: Normal. Paranasal sinuses: Normal. Ventricles and subarachnoid spaces: Normal. Cerebrum: No evidence of hemorrhage, acute infarction or mass . Cerebellum and brainstem: No evidence of hemorrhage, acute infarction or mass. Vasculature: Normal. Comments: None. IMPRESSION: Normal Examination
[2018-03-09] MEDS ORDERED: TORADOL IV ONE (01:02)
[2018-03-09 01:51] VITALS: BP 149/68
== END 2018-03-09 01:50 | disposition home or self-care (01) ==
LOC: ED 21:21
DX: J44.1 Chronic obstructive pulmonary disease with (acute) exacerbation (principal); G44.209 Tension-type headache, unspecified, not intractable; I10 Essential (primary) hypertension; Z86.73 Personal history of transient ischemic attack (TIA), and cerebral infarction without residual deficits; M19.90 Unspecified osteoarthritis, unspecified site; F17.200 Nicotine dependence, unspecified, uncomplicated; F14.10 Cocaine abuse, uncomplicated
CPT/HCPCS: 36415; 70450; 71045; 80053; 84703; 85025; 96374; 96375; 99285; J1885; J3010; J7512

== ENCOUNTER → 2018-04-08 01:33 | Emergency (ER) | payer MEDICARE | END | disposition left against medical advice (07) | LOC: ED 01:33 | DX: F10.10 Alcohol abuse, uncomplicated (principal); Z53.21 Procedure and treatment not carried out due to patient leaving prior to being seen by health care provider ==

== ENCOUNTER 2018-04-08 07:02 | Emergency (ER) | payer MEDICARE ==
[2018-04-08 07:40] VITALS: BP 152/98
--- NOTE | 2018-04-08 08:18 | Emergency Department Report ---
ED Headache HPI - General Chief Complaint: Headache Stated Complaint: ETOH Time Seen by Provider: 04/08/18 08:18 Source: patient, family Exam Limitations: no limitations - History of Present Illness Initial Comments: This is a 52-year-old female here reports that she is having an headache and nausea. Patient says she has a history of migraine. Denies any passing out, dizziness. Pain is 10/10 and achy. Denies any vomiting. Timing/Duration: 4-6 hours, episodic Quality: severe, achy Head Injury Location: frontal Recent Head Trauma: chronic headaches Modifying Factors: improves with: exposure to light, movement Associated Symptoms: nausea/vomiting. denies: confusion, fatigue, facial pain, fever/chills, flushing, loss of consciousness, nasal congestion, nasal drainage , numbness in legs/feet, rash, seizures, sinus infection, stiff neck, vision changes, weakness Allergies/Adverse Reactions: Allergies acetaminophen [From Darvocet-N] Allergy (Verified 04/08/18 07:37) Hives carbamazepine [From Tegretol] Allergy (Verified 04/08/18 07:37) Rash propoxyphene napsylate [From Darvocet-N] Allergy (Verified 04/08/18 07:37) Hives tuberculin,PPD,multi-puncture Allergy (Verified 04/08/18 07:37) Hives Home Medications: Ambulatory Orders ALBUTEROL Inhaler (OR & NICU) [ProAir HFA Inhaler] 2 puff IH QID PRN #1 inhalation 12/30/16 Benzonatate [Tessalon Perles] 100 mg PO Q8HR #14 capsule 12/30/16 Buprenorphine HCl/Naloxone HCl [Suboxone 4 mg-1 mg Sl Film] 1 each SL TID Duloxetine HCl [Cymbalta] 60 mg PO DAILY 12/30/16 Gabapentin [Neurontin] 800 mg PO QID 12/30/16 Lisinopril 40 mg PO DAILY 12/30/16 Oxycodone HCl/Acetaminophen [Percocet 10/325 mg] 1 each PO TID 12/30/16 Prazosin [Minipress] 1 mg PO DAILY 12/30/16 lamoTRIgine [LaMICtal] 100 mg PO QDAY 12/30/16 predniSONE [Deltasone] 20 mg PO QDAY #5 tab 12/30/16 traZODone [Desyrel] 200 mg PO QHS 12/30/16 ALBUTEROL Inhaler (OR & NICU) [ProAir HFA Inhaler] 2 puff IH QID PRN #1 inhalation 03/09/18 Ibuprofen [Motrin] 600 mg PO Q8H PRN #30 tablet 03/09/18 predniSONE [Deltasone] 20 mg PO QDAY #5 tab 03/09/18 Folic Acid [Folvite] 1 mg PO QDAY 14 Days #14 tablet 04/08/18 Ibuprofen [Motrin] 600 mg PO Q8H PRN #12 tablet 04/08/18 Ondansetron [Zofran Odt] 4 mg PO Q6H PRN #20 tab.rapdis 04/08/18 Pyridoxine [Vitamin B-6] 100 mg PO QDAY 14 Days #14 tablet 04/08/18 ED Review of Systems ROS: Stated complaint: ETOH Other details as noted in HPI Constitutional: denies: chills, fever Eyes: denies: eye pain, eye discharge, vision change ENT: denies: ear pain, throat pain, congestion Respiratory: denies: cough, shortness of breath, SOB with exertion, SOB at rest , stridor, wheezing Cardiovascular: denies: chest pain, palpitations, edema, syncope Gastrointestinal: nausea. denies: abdominal pain, vomiting, diarrhea Musculoskeletal: denies: back pain, joint swelling, arthralgia Skin: denies: rash, lesions Neurological: headache. denies: weakness, numbness, paresthesias, confusion, abnormal gait, vertigo ED Past Medical Hx - Past Medical History Previous Medical History?: Yes Hx Hypertension: Yes Hx CVA: Yes Hx Arthritis: Yes Hx Headaches / Migraines: Yes Hx Psychiatric Treatment: Yes (ETOH abuse, Drug abuse, Cocaine and crack) Hx Asthma: Yes Hx COPD: Yes Additional medical history: Lumbar disk issues - Surgical History Past Surgical History?: Yes Additional Surgical History: Back, left shoulder, skin cancer right upper arm. - Family History Family history: hypertension - Social History Smoking Status: Current Every Day Smoker Substance Use Type: Alcohol - Medications Home Medications: Home Medications Medication Instructions Recorded Confirmed Last Taken Type ALBUTEROL Inhaler (OR & NICU) 2 puff IH QID PRN #1 inhalation 12/30/16 Unknown Rx [ProAir HFA Inhaler] Benzonatate [Tessalon Perles] 100 mg PO Q8HR #14 capsule 12/30/16 Unknown Rx Buprenorphine HCl/Naloxone HCl 1 each SL TID 12/30/16 12/30/16 Unknown History [Suboxone 4 mg-1 mg Sl Film] Duloxetine HCl [Cymbalta] 60 mg PO DAILY 12/30/16 12/30/16 Unknown History Gabapentin [Neurontin] 800 mg PO QID 12/30/16 12/30/16 Unknown History Lisinopril 40 mg PO DAILY 12/30/16 12/30/16 Unknown History Oxycodone HCl/Acetaminophen 1 each PO TID 12/30/16 12/30/16 Unknown History [Percocet 10/325 mg] Prazosin [Minipress] 1 mg PO DAILY 12/30/16 12/30/16 Unknown History lamoTRIgine [LaMICtal] 100 mg PO QDAY 12/30/16 12/30/16 Unknown History predniSONE [Deltasone] 20 mg PO QDAY #5 tab 12/30/16 Unknown Rx traZODone [Desyrel] 200 mg PO QHS 12/30/16 12/30/16 Unknown History ALBUTEROL Inhaler (OR & NICU) 2 puff IH QID PRN #1 inhalation 03/09/18 Unknown Rx [ProAir HFA Inhaler] Ibuprofen [Motrin] 600 mg PO Q8H PRN #30 tablet 03/09/18 Unknown Rx predniSONE [Deltasone] 20 mg PO QDAY #5 tab 03/09/18 Unknown Rx Folic Acid [Folvite] 1 mg PO QDAY 14 Days #14 tablet 04/08/18 Unknown Rx Ibuprofen [Motrin] 600 mg PO Q8H PRN #12 tablet 04/08/18 Unknown Rx Ondansetron [Zofran Odt] 4 mg PO Q6H PRN #20 tab.rapdis 04/08/18 Unknown Rx Pyridoxine [Vitamin B-6] 100 mg PO QDAY 14 Days #14 tablet 04/08/18 Unknown Rx ED Physical Exam - General Limitations: No Limitations General appearance: alert, in no apparent distress - Head Head exam: Present: atraumatic, normocephalic, normal inspection - Expanded Head Exam Expanded Head exam: Absent: laceration, abrasion, contusion, hematoma, racoon eyes, coronel's sign, general tenderness, tenderness of temporal artery, CSF rhinorrhea , CSF otorrhea - Eye Eye exam: Present: normal appearance, PERRL, EOMI. Absent: conjunctival injection, nystagmus, periorbital swelling, periorbital tenderness Pupils: Present: normal accommodation - ENT ENT exam: Present: normal exam, normal orophraynx, mucous membranes moist, TM's normal bilaterally, normal external ear exam - Neck Neck exam: Present: normal inspection, full ROM, other (no C-spine tenderness). Absent: tenderness, lymphadenopathy - Respiratory Respiratory exam: Present: normal lung sounds bilaterally. Absent: respiratory distress, chest wall tenderness - Cardiovascular Cardiovascular Exam: Present: regular rate, normal rhythm, normal heart sounds. Absent: systolic murmur, diastolic murmur - GI/Abdominal GI/Abdominal exam: Present: soft, normal bowel sounds. Absent: distended, tenderness, guarding, rigid, organomegaly, mass - Extremities Exam Extremities exam: Present: normal inspection, full ROM, normal capillary refill , other (No cce. + 2 pulses in all extremities, no neurovascular compromise). Absent: tenderness, pedal edema, joint swelling, calf tenderness - Back Exam Back exam: Present: normal inspection, full ROM. Absent: tenderness, CVA tenderness (R), CVA tenderness (L), muscle spasm, paraspinal tenderness, vertebral tenderness, rash noted - Neurological Exam Neurological exam: Present: alert, oriented X3, normal gait - Expanded Neurological Exam Expanded Neurological exam: Present: ataxia. Absent: innattentive, memory loss-remote event, memory loss-recent event, receptive aphasia, expressive aphasia, total aphasia, tremor, protecting the airway Patient oriented to: Present: person, place, time Speech: Present: fluid speech Cranial nerves: EOM's Intact: Normal, Gag Reflex: Normal, Tongue Deviation: Normal, Nystagmus: Normal, Facial Sensation: Normal Cerebellar function: Romberg: Normal Upper motor neuron: Sensory Extinction: Normal Sensory exam: Upper Extremity Light Touch: Normal, Upper Extremity Temperature: Normal, UE 2 Point Discrimination: Normal, Lower Extremity Light Touch: Normal, Lower Extremity Temperature: Normal, LE 2 Point Discrimination: Normal Motor strength exam: RUE: 5, LUE: 5, RLE: 5, LLE: 5 Best Eye Response (Homer): (4) open spontaneously Best Motor Response (Homer): (6) obeys commands Best Verbal Response (Homer): (5) oriented Magaly Total: 15 - Psychiatric Psychiatric exam: Present: normal affect, normal mood - Skin Skin exam: Present: warm, dry, intact, normal color. Absent: rash ED Course Vital Signs 04/08/18 04/08/18 07:37 09:52 Temperature 97.7 F Pulse Rate 93 H Respiratory 20 20 Rate Blood Pressure 152/98 O2 Sat by Pulse 97 Oximetry - Reevaluation(s) Reevaluation #1: 04/08/18 09:00 Patient here complaining that she has a headache and she has a history of migraine headache. I did CT scan and blood alcohol level on her and her blood alcohol level was 0.12 at first she denied that she was drinking and but when I went and told her the level she said she was partying at a bus stop yesterday. She says she woke up with a headache and not feeling very well. She was given 1 L of IV fluids, Zofran 8mg IV and Reglan 10 mg IV. She says she was feeling a little better but she still has a headache Reevaluation #2: 04/08/18 10:39 Patient was given an additional 1 L of normal saline to be her second liter, Toradol 30 mg IV, thiamine 100 mg, folic acid 1 mg and vitamin B6 tablet in the emergency room. Blood alcohol level is at 0.12. She is feeling a little better after Toradol. Reevaluation #3: 04/08/18 11:35 Patient reports pain is better. Still awaiting a repeat EtOH level Reevaluation #4: 04/08/18 13:13 Patient stable. She is up and walking around. Blood alcohol level is 0.05 at present. ED Medical Decision Making - Lab Data Lab Results 04/08/18 Range/Units 08:24 Plasma/Serum Alcohol 0.12 H (0-0.07) % - Radiology Data Radiology results: report reviewed CT scan of the head and brain without contrast shows no acute findings. This was dictated by radiologist and report reviewed by myself. Patient: Rene LARES MR#: [id number] : 10/04/1975 Acct:[id number] Age/Sex: 42 / M ADM Date: 04/08/18 Loc: ED Attending Dr: Ordering Physician: THERESA VELAZQUEZ Date of Service: 04/08/18 Procedure(s): XR chest routine 2V Accession Number(s): [id number] cc: THERESA VELAZQUEZ Fluoro Time In Minutes: ROUTINE CHEST, TWO VIEWS: HISTORY: Chest pain with inspiration. No comparison. There appears to be chronic bony deformity of the left hemithorax, correlate with history. This could be secondary to trauma. Low lung volume is suspected on the left side. The left hemidiaphragm is mildly elevated with moderate left pleural thickening lateral to the left upper lobe. The lungs are well aerated otherwise. Heart and mediastinal structures are unremarkable. IMPRESSION: Bony deformity of the left hemithorax which is probably chronic and posttraumatic. There are chronic pleural-parenchymal changes in the left lung as described. I suspect these findings are all chronic. No acute cardiopulmonary process is appreciated. Please correlate with the patient's clinical history and consider further evaluation with CT chest with contrast. Transcribed By: TTR Dictated By: GUILLE DÍAZ JR, MD Electronically Authenticated By: GUILLE DÍAZ JR, MD Signed Date/Time: 04/08/18804 DD/ 2 TD/TT: 04/08/18804 - Medical Decision Making This is a 52-year-old female that came in inebriated and reports that she has a headache due to partying at a bus stop last night. Critical care attestation.: If time is entered above; I have spent that time in minutes in the direct care of this critically ill patient, excluding procedure time. ED Disposition Clinical Impression: ETOH abuse, Nausea alone Intoxication by serum Qualifiers: Encounter type: initial encounter Qualified Code(s): T80.69XA - Other serum reaction due to other serum, initial encounter Headache Qualifiers: Headache type: unspecified Headache chronicity pattern: acute headache Intractability: not intractable Qualified Code(s): R51 - Headache Disposition: DC-01 TO HOME OR SELFCARE Is pt being admited?: No Does the pt Need Aspirin: No Condition: Stable Instructions: Alcohol Intoxication (ED), Acute Headache (ED), Acute Nausea and Vomiting (ED) Additional Instructions: Please follow-up with outside Medical Center tomorrow as he do not have a primary care doctor. Take medication as prescribed Refrain from drinking drinking alcohol excessively Prescriptions: Folic Acid [Folvite] 1 mg PO QDAY 14 Days #14 tablet Ibuprofen [Motrin] 600 mg PO Q8H PRN #12 tablet PRN Reason: Pain Ondansetron [Zofran Odt] 4 mg PO Q6H PRN #20 tab.rapdis PRN Reason: Nausea And Vomiting Pyridoxine [Vitamin B-6] 100 mg PO QDAY 14 Days #14 tablet Referrals: PRIMARY CARE,MD [Primary Care Provider] - 3-5 Days Forms: Work/School Release Form(ED)
[2018-04-08] MEDS ORDERED: NACL 0.9% 1000 ML 1,000 ML IV ONE ×2 (08:19→09:42)
[2018-04-08] MEDS ORDERED: REGLAN IV ONE (08:19)
[2018-04-08] MEDS ORDERED: DECADRON IV ONE (08:19)
[2018-04-08] MEDS ORDERED: ZOFRAN IV ONE (08:19)
--- NOTE | 2018-04-08 08:55 | Cat Scan Report ---
CT HEAD WITHOUT CONTRAST: HISTORY: Headache. TECHNIQUE: Sequential 2.5mm CT images. COMPARISON: 03/08/18. FINDINGS: Cerebral Parenchyma: Within normal limits. Cerebellum: Within normal limits. Brainstem: Within normal limits. Ventricles: Normal. Sella: Normal. Extra-axial spaces: Normal. Basal Cisterns: Normal. Intracranial Hemorrhage: None. Midline Shift: None. Calvarium: Normal. Sinuses: Normal. Mastoid Air Cells: Normal. Visualized Orbits: Normal. IMPRESSION: Cranial CT scan within normal limits.
[2018-04-08] MEDS ORDERED: TORADOL IV ONE (09:42)
[2018-04-08] MEDS ORDERED: VITAMIN B-1 PO ONE (09:51)
[2018-04-08] MEDS ORDERED: FOLVITE PO SCH (10:00)
[2018-04-08] MEDS ORDERED: VITAMIN B-6 PO SCH (10:00)
== END 2018-04-08 13:26 | disposition home or self-care (01) ==
LOC: ED 07:02
DX: T80.69XA Other serum reaction due to other serum, initial encounter (principal); R51 Headache; F10.10 Alcohol abuse, uncomplicated; I11.0 Hypertensive heart disease with heart failure; M19.90 Unspecified osteoarthritis, unspecified site; J44.9 Chronic obstructive pulmonary disease, unspecified; F17.200 Nicotine dependence, unspecified, uncomplicated; Z88.8 Allergy status to other drugs, medicaments and biological substances
CPT/HCPCS: 36415; 70450; 96361; 96374; 96375; 99284; G0480; J1100; J1885; J2405; J2765; J7030; 80320